=== PATIENT | female | born 1995 | race Caucasian/White ===

== ENCOUNTER 2018-02-09 18:44 | Emergency (ER) | payer OTHER ==
[~2018-02-09 18:44] MED LIST: ISOVUE-370 76%-LOCM 1 ML ONE
[2018-02-09] MEDS ORDERED: Dexamethasone 4 mg/ml Vial ONE (19:18)
[2018-02-09] MEDS ORDERED: Ibuprofen 200 MG TAB ONE (19:18)
[2018-02-09] MEDS ORDERED: Ondansetron ODT 4 MG TAB ONE (19:18)
[2018-02-09 20:01] LABS: Mean Corpuscular HGB CONC 31.8 g/dL (32.0-36.0); Mean Corpuscular Hemoglobin 28.3 pg (27.0-31.0); Mean Platelet Volume 7.6 fL (7.4-10.4); Platelet Count 245 thou/uL (130-400); RBC Distribution Width 12.6 % (11.5-14.5); White Blood Cell (WBC) Count 11.7 thou/uL (4.8-10.8)
[2018-02-09 20:07] LABS: BHCG - Serum Negative (NEGATIVE); Pregs Control Background? CLEAR/WHITE (CLR/WHITE); Pregs Control Bar Appear? YES (CONTROL BAR)
[2018-02-09 20:17] LABS: Band 5 % (5-11); Lymphocytes 3 % (21-51); MDiff Complete? YES; Monocytes 4 % (0-10); Neutrophil 88 % (42-75); PLT Morphology Comment Appears Adequate
[2018-02-09 20:22] LABS: ALT (SGPT) 26 U/L (8-55); AST (SGOT) 48 U/L (5-34); Albumin 3.9 g/dL (3.5-5.0); Alkaline Phosphatase 96 U/L (40-150); Anion Gap 14 mmol/L (10-20); BUN (Urea Nitrogen) 14 mg/dL (7.0-18.7); Bilirubin, Total 0.3 mg/dL (0.2-1.2); Calc. Creatinine Clearance 0 mL/min (70-130); Calcium 8.9 mg/dL (7.8-10.44); Carbon Dioxide 22 mmol/L (22-29); Chloride 103 mmol/L (98-107); Estimated GFR-MDRD Greater than 90; Globulin 2.9 g/dL (2.4-3.5); Glucose 157 mg/dL (70-105); Potassium 3.7 mmol/L (3.5-5.1); Protein, Total 6.8 g/dL (6.0-8.3); Sodium 135 mmol/L (136-145)
[2018-02-09 20:29] LABS: Bilirubin Negative (Negative); Blood, Urine Negative (Negative); Clarity CLEAR (Clear); Glucose, Urine (Dipstick) Negative (Negative); Leukocyte Small (Negative); Nitrite Negative (Negative); Protein, Urine (Dipstick) Negative (Neg-Trace); pH, Urine 7.5 (5.0-9.0)
[2018-02-09 20:31] LABS: Bacteria/HPF None Seen HPF (None Seen); Hyaline Casts/LPF 0-3 HYALINE CAST LPF (0-3 Hyaline); Pathc Cast-AUWi Flag 0.29 (0-2.49); RBC/HPF 0-3 HPF (0-3); Squamous Epithelial 0-3 HPF (0-3)
--- NOTE | 2018-02-09 20:33 | RAD ---
RADIOGRAPH CHEST 1 VIEW: 02/09/18 HISTORY: 22-year-old female with dyspnea and fever. FINDINGS: The visualized lung cuellar are clear. The cardiomediastinal silhouette and hilar shadows are normal. The lateral costophrenic angles are sharp. The osseous structures appear normal. There is no pneu mothorax. IMPRESSION: Negative. [email or web address] [] POS: JUHI
--- NOTE | 2018-02-09 23:31 | CT ---
CT ABDOMEN WITH CONTRAST CT PELVIS WITH CONTRAST: DATE: 02/09/18 at 10:52 p.m. HISTORY: 22-year-old female with generalized abdominal pain, nausea, vomiting, and diarrhea, with fever. COMPARISON: None. TECHNIQUE: IV injection of iodinated contrast media: Isovue Oral contrast media: Not administered. FINDINGS: There is a large number of mildly enlarged mesenteric lymph nodes in the central and right lower quad rant portions of the abdominal cavity. The appendix is normal. Lack of visceral fat makes it difficul t to determine whether or not there is fat stranding. No small bowel dilation. No definite evidence o f pneumoperitoneum. The abdominal aorta, liver, kidneys, adrenals, and spleen, are normal. Lack of vi sceral fat makes it difficult to evaluate for mild acute pancreatitis. No overt evidence of pancreati tis is identified. No signs of colonic diverticulitis. Unremarkable urinary bladder. IMPRESSION: 1. Diffuse mesenteric lymphadenitis. 2. Normal appendix. JOSE JUAN Blank POS: [email or web address]
== END 2018-02-09 23:59 | disposition home or self-care (01) ==
LOC: ERS 18:44
DX: I88.0 Nonspecific mesenteric lymphadenitis (principal); A09 Infectious gastroenteritis and colitis, unspecified; F17.210 Nicotine dependence, cigarettes, uncomplicated
CPT/HCPCS: 36415; 71045; 74177; 80053; 81003; 81015; 84443; 84703; 85025; 87040; 87081; 87086; 87430; 87804; 96360; 96361; 96372; J1100; Q0162

== ENCOUNTER 2019-02-06 18:09 | Emergency (ER) | payer OTHER ==
[2019-02-06 18:35] LABS: Pregnancy Test - Urine (BHCG) Negative (Negative); Pregu Control Background? CLEAR/WHITE (CLR/WHITE); Pregu Control Bar Appear? YES (CONTROL BAR); Specific Gravity 1.023 (1.002-1.036)
[2019-02-06] MEDS ORDERED: diphenhydrAMINE 50 MG/ML VIAL ONE (19:59)
[2019-02-06] MEDS ORDERED: Metoclopramide HCl 10 MG/2 ML VIAL ONE (19:59)
== END 2019-02-06 21:35 | disposition home or self-care (01) ==
LOC: ERS 18:09
DX: R51 Headache (principal); F41.9 Anxiety disorder, unspecified; F32.9 Major depressive disorder, single episode, unspecified
CPT/HCPCS: 81025; 96361; 96374; 96375; J1200; J2765